=== PATIENT | male | born 1955 | race Two or more races ===

== ENCOUNTER 2020-03-02 07:46 | Inpatient (IN) | payer SELFPAY ==
[~2020-03-02] VITALS: Ht 162.6 cm; Wt 48.1 kg
[2020-03-02] MEDS ORDERED: IV NORMAL SALINE 500 ML BAG IV ONE (08:00)
[2020-03-02] MEDS ORDERED: ONDANSETRON 4 MG/2 ML VIAL IV ONE ×2 (08:00→09:15)
[2020-03-02] MEDS ORDERED: FAMOTIDINE. 20 MG/2 ML VIAL IV ONE ×2 (08:00→08:51)
[2020-03-02] MEDS ORDERED: MAG HYDROX/AL HYDROX/SIMETH 30 ML LIQUID UDC PO ONE (08:00)
--- NOTE | 2020-03-02 08:00 | NUR ---
PT IS IN ROOM #1A. DR VELASQUEZ EVALUATED THE PT.
[2020-03-02 08:30] LABS: BASOPHILS % (AUTO) 0.2 % (0.0-2.0); LYMPHOCYTES # (AUTO) 0.2 K/uL (20.0-40.0); LYMPHOCYTES % (AUTO) 1.9 % (20.5-51.5); MEAN CORPUSCULAR HEMOGLOBIN 22.2 uug (23.8-33.4); RED BLOOD CELL COUNT(AUTO) 2.98 MIL/uL (4.06-5.63)
[2020-03-02 08:32] LABS: EOSINOPHILS % (AUTO) 0.1 % (0.0-7.0); HEMATOCRIT 21.9 % (36.7-47.1); MEAN CORPUSCULAR HGB CONC 30 g/dL (32.5-36.3); MEAN CORPUSCULAR VOLUME 73.5 fL (73.0-96.2); MONOCYTES % (AUTO) 9.5 % (0.0-11.0); NEUTROPHILS # (AUTO) 9.5 K/uL (1.8-8.9); NEUTROPHILS % (AUTO) 88.3 % (38.5-71.5); PLATELET COUNT (AUTO) 503 K/uL (152-348); WHITE BLOOD COUNT (AUTO) 10.7 K/uL (3.6-10.2)
[2020-03-02 08:41] LABS: CREATININE 1.6 mg/dL (0.6-1.3); POTASSIUM 3.4 mmol/L (3.5-5.1)
[2020-03-02] MEDS ORDERED: ONDANSETRON 4 MG/2 ML VIAL ONE (08:49)
[2020-03-02] MEDS ORDERED: MAG HYDROX/AL HYDROX/SIMETH 30 ML LIQUID UDC ONE (08:50)
[2020-03-02 08:55] LABS: BILIRUBIN,DIRECT 0.2 mg/dL (0.0-0.2); BILIRUBIN,TOTAL 0.8 mg/dL (0.2-1.0)
[2020-03-02 08:56] LABS: ETHANOL < 3 MG/DL (0-0)
[2020-03-02 08:57] LABS: HEMOGLOBIN 6.6 g/dL (12.5-16.3)
[2020-03-02] MEDS ORDERED: LIDOCAINE VISCUS 2% 15 ML UDC MM ONE (09:15)
[2020-03-02 10:36] LABS: LIPASE 1227 U/L (73-393)
--- NOTE | 2020-03-02 14:23 | NUR ---
ONE UNIT OF PRBC's WAS INFUSED. PT TOLERATED TO BLOOD TRANSFUSION WITHOUT COMPLICATIONS. ( SEE BLOOD TRANSFUSION FORM) CONTINUE TO MONITOR THE PT.
[2020-03-02] MEDS ORDERED: IV LACTATED RINGERS SOLUTION 1,000 ML BAG IV ONE (15:00)
[2020-03-02] MEDS ORDERED: MORPHINE SULFATE 4 MG/1 ML DISP.SYRIN IV ONE (15:00)
[2020-03-02] MEDS ORDERED: LIDOCAINE VISCUS 2% 15 ML UDC ONE (15:09)
[2020-03-02] MEDS ORDERED: ACETAMINOPHEN 325 MG TABLET PO PRN (18:15)
[2020-03-02] MEDS ORDERED: MAGNESIUM HYDROXIDE 30 ML LIQUID UDC PO PRN (18:15)
[2020-03-02] MEDS ORDERED: Z GUARD REMEDY PASTE 57 GM TUBE TOP PRN (18:15)
--- NOTE | 2020-03-02 18:35 | NUR ---
PT IS NPO ACCORDING TO DR VELASQUEZ.
[2020-03-02] MEDS: ONDANSETRON 4 MG/2 ML VIAL IV PRN (18:48)
--- NOTE | 2020-03-02 19:00 | NUR ---
REPORT GIVEN TO FINANCIAL SYSTEMS MANAGER RN.
--- NOTE | 2020-03-02 19:30 | NUR ---
Received patient in shift report
[2020-03-02 20:15] LABS: LYMPHOCYTES % (MANUAL) 2 % (20-40); MONOCYTES % (MANUAL) 5 % (2-10); NEUTROPHILS % (MANUAL) 93 % (42-75)
--- NOTE | 2020-03-03 03:05 | NUR ---
Patient noted resting iin bed, no signs of acute distress noted
--- NOTE | 2020-03-03 07:10 | NUR ---
Recieved report from Jennifer DALEY. Pt in [facility] noted.
[2020-03-03] MEDS ORDERED: FAMOTIDINE. 20 MG/2 ML VIAL IV ONE (07:32)
[2020-03-03 08:49] LABS: BASOPHILS % (AUTO) 0.4 % (0.0-2.0); EOSINOPHILS % (AUTO) 0.6 % (0.0-7.0); HEMATOCRIT 22.6 % (36.7-47.1); LYMPHOCYTES # (AUTO) 0.4 K/uL (20.0-40.0); MEAN CORPUSCULAR HEMOGLOBIN 23.8 uug (23.8-33.4); MEAN CORPUSCULAR HGB CONC 32 g/dL (32.5-36.3); MEAN CORPUSCULAR VOLUME 75.7 fL (73.0-96.2); MONOCYTES # (AUTO) 0.8 K/uL (2.0-10.0); MONOCYTES % (AUTO) 11.6 % (0.0-11.0); NEUTROPHILS # (AUTO) 5.6 K/uL (1.8-8.9); NEUTROPHILS % (AUTO) 81.4 % (38.5-71.5); PLATELET COUNT (AUTO) 323 K/uL (152-348); RED BLOOD CELL COUNT(AUTO) 2.99 MIL/uL (4.06-5.63); WHITE BLOOD COUNT (AUTO) 6.9 K/uL (3.6-10.2)
[2020-03-03 09:00] LABS: HEMOGLOBIN 7.1 g/dL (12.5-16.3)
[2020-03-03] MEDS ORDERED: FAMOTIDINE. 20 MG/2 ML VIAL IV SCH ×2 (09:00→17:00)
--- NOTE | 2020-03-03 09:32 | NUR ---
Carolyn Wilder aware of hgb of 7.1, and that it is trending up from yesterday.
--- NOTE | 2020-03-03 11:24 | NUR ---
SBAR report given to Emerald in Telemetry.
--- NOTE | 2020-03-03 11:39 | NUR ---
pt tranferred to tele unit via gurpa with all belongings by Billie CARSON
[2020-03-03 11:47] LABS: MAGNESIUM 1.5 mg/dL (1.8-2.4); PHOSPHOROUS 1.5 mg/dL (2.5-4.9)
[2020-03-03 11:59] VITALS: BP 151/75
--- NOTE | 2020-03-03 12:00 | NUR ---
Received report from Jordana in ER at 1124. Pt arrived to unit at 1140 via gurney. Belongings accounted for, belongings list signed by pt. Pt A&Ox4, Marshallese speaking, able to make needs known. Respirations even, O2 sat 100% RA. No s/s of acute distress, no SOB, no complaints of pain or discomfort at this time. Belongings and call light within reach. Educated pt transmission system operator light usage, pt verbalized understanding. Safety precautions in place. SENIOR PROJECT ENGINEER Carolyn Wilder at bedside, aware of lab values. Pt started on Cl. Liq diet. Will continue to monitor.
[2020-03-03] MEDS ORDERED: THIAMINE HCL INJ 100 MG in IV DEXTROSE 5% 50 ML IV SCH (14:00)
[2020-03-03] MEDS: IV NS 1000 ML 1,000 ML IV PRN (14:28)
[2020-03-03] MEDS: FOLIC ACID 1 MG TABLET PO SCH (14:34)
[2020-03-03] MEDS: THIAMINE HCL 100 MG TABLET PO SCH (14:34)
[2020-03-03] MEDS ORDERED: NEUTRA PHOS PACKET PO ONE (15:45)
[2020-03-03 16:01] VITALS: BP 148/72
[2020-03-03] MEDS ORDERED: POTASSIUM CHLORIDE 50 ML IV SCH (18:00)
[2020-03-03] MEDS ORDERED: MAGNESIUM SULFATE/D5W 100 ML IV SCH ×2 (18:00→20:00)
[2020-03-03] MEDS: HYDROCODONE/APAP 5-325MG TABLET PO PRN (18:21)
[2020-03-03 19:40] VITALS: BP 153/61
--- NOTE | 2020-03-03 19:45 | NUR ---
EOSS: Pt. in bed, A&O x4. No s/s of acute distress, no SOB. Respirations unlabored, O2 sat 99% RA. All due medications given per orders. All care administered as ordered. All needs met throughout shift. Pt denies pain or discomfort at this time. No BM during shift, will endorse occult blood stool to mine shifter. Safety measures and fall precautions maintained throughout shift. Call light within reach. Will endorse care to mine shifter.
[2020-03-03] MEDS ORDERED: POTASSIUM CHLORIDE 100 ML ONE (21:35)
[2020-03-03] MEDS: POTASSIUM CHLORIDE 50 ML IV SCH ×2 (21:45→22:44)
[2020-03-04 00:12] VITALS: BP 151/80
[2020-03-04 04:40] VITALS: BP 132/68
--- NOTE | 2020-03-04 06:39 | NUR ---
Patient awake and able to make needs known. Noted with IV on right AC pulled out.Started new Iv access on right forearm 22 g with good blood return .Kcl 10 meq 2 bags given during the shift.No a/r noted .Tolerated well. Patient vomited x1 this morning.Zofran IVP given.Will endorsed to oncoming shift.
[2020-03-04] MEDS: IV NS 1000 ML 1,000 ML IV PRN ×2 (06:56→17:26)
--- NOTE | 2020-03-04 07:30 | NUR ---
Received pt in bed, awake, A&Ox4. [place] speaking, able to verbalize needs. No s/s of acute distress. No SOB, respirations even. Pt denies pain or discomfort at this time. Call light and belongings in reach. Safety precautions in place. Will continue to monitor.
[2020-03-04 08:03] LABS: BILIRUBIN,TOTAL 0.4 mg/dL (0.2-1.0); CREATININE 0.9 mg/dL (0.6-1.3); PHOSPHOROUS 1.5 mg/dL (2.5-4.9); TOTAL PROTEIN, SERUM 6.1 g/dL (6.4-8.2)
[2020-03-04 08:27] LABS: BASOPHILS % (AUTO) 0.5 % (0.0-2.0); EOSINOPHILS % (AUTO) 0.7 % (0.0-7.0); HEMATOCRIT 23.8 % (36.7-47.1); HEMOGLOBIN 7.5 g/dL (12.5-16.3); LYMPHOCYTES # (AUTO) 0.8 K/uL (20.0-40.0); LYMPHOCYTES % (AUTO) 13.6 % (20.5-51.5); MEAN CORPUSCULAR HEMOGLOBIN 23.7 uug (23.8-33.4); MEAN CORPUSCULAR HGB CONC 32 g/dL (32.5-36.3); MEAN CORPUSCULAR VOLUME 75.4 fL (73.0-96.2); MONOCYTES # (AUTO) 0.5 K/uL (2.0-10.0); NEUTROPHILS # (AUTO) 4.5 K/uL (1.8-8.9); NEUTROPHILS % (AUTO) 76.2 % (38.5-71.5); PLATELET COUNT (AUTO) 338 K/uL (152-348); RED BLOOD CELL COUNT(AUTO) 3.16 MIL/uL (4.06-5.63); WHITE BLOOD COUNT (AUTO) 5.9 K/uL (3.6-10.2)
[2020-03-04 08:41] VITALS: BP 137/74
[2020-03-04 08:50] LABS: POTASSIUM 2.7 mmol/L (3.5-5.1)
[2020-03-04] MEDS ORDERED: POTASSIUM CHLORIDE 20 MEQ POWDER PACKET PO SCH (09:00)
[2020-03-04] MEDS: THIAMINE HCL 100 MG TABLET PO SCH (09:53)
[2020-03-04] MEDS: FOLIC ACID 1 MG TABLET PO SCH (09:53)
[2020-03-04] MEDS: FAMOTIDINE 20 MG TABLET PO SCH ×2 (09:55→20:53)
--- NOTE | 2020-03-04 10:00 | NUR ---
Pt with emesis x1. Emesis clear, no evidence of bleeding noted. Will continue to monitor.
[2020-03-04] MEDS ORDERED: POTASSIUM CHLORIDE 50 ML IV SCH (11:00)
--- NOTE | 2020-03-04 11:19 | NUR ---
Training And Development Professional consultation: 10:30am: This SW met with this patient today. Reason for consultation is homelessness. Patient is a 64 year old male, alert, oriented x 4, able to communicate. Patient was receptive to meeting with this SW. Patient reports coming to the hospital on 03/02 due to abdominal pain. Patient reports being homeless, and living in a tent near [facility]. Patient states that he moved to [place] from [place] about 1 year ago, following his divorce, and that he has been homeless since moving to [place]. Patient currently does not have health insurance, and this SW made a referral to patient services service representative Rachel, , who stated that she will be following up with the patient today. Patient is independent with his ADL's. Patient reports receiving about $500 in social security benefits. Patient reports no family or friends to contact, and states that he is responsible for himself. Patient reports that he started drinking when he moved to [place], drinking vodka almost on a daily basis. Patient reports the last time he had a drink was last week, and stated that he longer wants to drink. Patient stated he does not smoke cigarettes, nor uses any other drugs. Patient reports no hx of mental illness. No SI or HI. Patient was cooperative throughout this interview, maintained appropriate eye contact with this SW. Affect and behavior were WNL. Speech was clear. Thought process and thought content were appropriate. Discharge plans discussed, and patient stated that he would return back to his tent. SW offered patient homeless community resources, and patient was receptive to these resources. provided the homeless resource packet to the patient, which includes the following resources: the [phone] [facility] Winter Fdc Program that provides locations of the winter shelters: [facility], [place], ; [facility], [address] [place], [address], ; [facility], [facility], [address], [address], ; [facility] [place], Tanesha Coates, [address] [facility], [address], ; [facility] [place], Deanna [place], [address], [place], [address]; [phone]; [employer], [employer], [address] [place], [address], ; [facility] [place], [address] [place], [address], [phone]; [facility], [address] [place], [address], ; [facility] [employer], [address], [address], ; [facility] [place], [employer], [address] [place] [address], ; [facility] [employer] [place], [facility], [address], [address], ; [facility] [place], [facility], [address], [address], ; the [facility] homeless directory which provides a list of places that individuals can go to throughout the week for hot meals, sack lunches, food pantries, and showers; a list of mental health clinics: [facility] [address] [place] [address], ; [facility] [address] [place] [address], ; [facility] [address] [place] [address], ; a list of medical clinics: [facility] [address] [facility] [address], [place]. [place], ; [facility] [address] [facility], [address] [place] [address]; [facility] [address] [facility] [address], ; and a list of substance abuse programs: [facility] Substance Abuse Self-helpline ; [facility] ; [facility] ; [facility] ; [facility] ; [facility] [phone]; [facility] [phone]. SW also provided patient with information on locations of pharmacies. Patient signed the homeless patient waiver form, which this SW filed in patient's chart. No further SS interventions needed at this time, however SW will remain available to the patient, as needed.
[2020-03-04 12:23] VITALS: BP 125/66
[2020-03-04 12:32] LABS: *OCCULT BLOOD STOOL POSITIVE (NEGATIVE)
--- NOTE | 2020-03-04 13:17 | NUR ---
Pt refused IV KCL. DNP Bryant Carrion at bedside at aware of refusal. New order for PO Klor-con. Will continue to monitor.
[2020-03-04] MEDS: ENSURE CLEAR 240 ML LIQUID (MIX BERRY) PO SCH ×2 (13:25→17:16)
[2020-03-04] MEDS ORDERED: POTASSIUM CHLORIDE 20 MEQ POWDER PACKET PO ONE (13:30)
[2020-03-04 16:16] VITALS: BP 125/66
[2020-03-04] MEDS ORDERED: SODIUM PHOSPHATE MM 15 MMOL in IV NORMAL SALINE 250 ML IV ONE (16:30)
[2020-03-04] MEDS: POTASSIUM CHLORIDE 20 MEQ POWDER PACKET PO ONE ×2 (17:16→17:38)
--- NOTE | 2020-03-04 17:39 | NUR ---
Pt refused 1800 Klor-Con. C/O burning pain in stomach. Will continue to monitor.
--- NOTE | 2020-03-04 18:45 | NUR ---
Pt. pulled out IV at 1845 and refused IV medication and fluids. Pt stated: "I don't want it". IV catheter intact, no shearing noted. Site cleaned, pressure dressing applied. No s/s of active bleeding noted. Will endorse to retail shift manager.
--- NOTE | 2020-03-04 19:30 | NUR ---
Received patient lying in bed AAOx4. Mainly Burundian speaking. Calm and cooperative at this time. In no acute distress. Denies any pain. Complained of stomach pain. Will notify MD. ANDREWS on tele at 77/min. Will restart IV. Patient pulled out IV per day shift nurse report. Safety measure initiated and call dickey within reached.
--- NOTE | 2020-03-04 19:30 | NUR ---
EOSS: Pt in bed, awake, A&Ox4. No SOB. Pt continues to refuse treatments. Pt c/o of stomach pain. No further emesis noted. No s/s of active bleeding noted. Safety measures and fall precautions maintained throughout shift. Call light within reach, pt verbalized understanding of usage. Will endorse care to machinist 2nd shift.
--- NOTE | 2020-03-04 19:31 | NUR ---
Started new IV site/line on left AC #20G. IVF continued.
--- NOTE | 2020-03-04 20:10 | NUR ---
Patient complaining of gastric pain. Informed OVEN WORKER Afshan and ordered Maalox 30ml q6hrs PRN. Order read back and verified. Will carry out order.
[2020-03-04] MEDS: MAG HYDROX/AL HYDROX/SIMETH 30 ML LIQUID UDC PO PRN (20:52)
[2020-03-05 00:03] VITALS: BP 127/64
[2020-03-05 04:09] VITALS: BP 132/54
--- NOTE | 2020-03-05 06:26 | NUR ---
No significant event throughout the shift. Slept well last night. Continue on IV fluids. Maalox given per PRN order x1 and effective. No further complain of stomach pain. IVF infusing. NSR on tele at 67/min. Needs attended to and met. Safety measure maintained and call dickey within reached.
--- NOTE | 2020-03-05 07:30 | NUR ---
Received pt in bed, awake, A&Ox4. Citizen Of [place] speaking, able to verbalize needs. No s/s of acute distress. No SOB, respirations even. Pt denies pain or discomfort at this time. IVF infusing. Call light and belongings in reach. Safety precautions in place. Will continue to monitor.
[2020-03-05 07:38] LABS: CREATININE 0.8 mg/dL (0.6-1.3)
[2020-03-05 08:11] LABS: EOSINOPHILS # (AUTO) 0.1 K/uL (0.0-0.7); MONOCYTES # (AUTO) 0.5 K/uL (2.0-10.0)
[2020-03-05 08:13] LABS: BASOPHILS % (AUTO) 0.8 % (0.0-2.0); EOSINOPHILS % (AUTO) 1.3 % (0.0-7.0); HEMATOCRIT 23.8 % (36.7-47.1); LYMPHOCYTES # (AUTO) 0.6 K/uL (20.0-40.0); LYMPHOCYTES % (AUTO) 10.6 % (20.5-51.5); MEAN CORPUSCULAR HEMOGLOBIN 23.4 uug (23.8-33.4); MEAN CORPUSCULAR HGB CONC 31 g/dL (32.5-36.3); MONOCYTES % (AUTO) 9.5 % (0.0-11.0); NEUTROPHILS # (AUTO) 4.4 K/uL (1.8-8.9); NEUTROPHILS % (AUTO) 77.8 % (38.5-71.5); PLATELET COUNT (AUTO) 346 K/uL (152-348); RED BLOOD CELL COUNT(AUTO) 3.13 MIL/uL (4.06-5.63); WHITE BLOOD COUNT (AUTO) 5.7 K/uL (3.6-10.2)
[2020-03-05 08:33] LABS: HEMOGLOBIN 7.3 g/dL (12.5-16.3)
[2020-03-05] MEDS: FAMOTIDINE 20 MG TABLET PO SCH ×2 (08:39→20:13)
[2020-03-05] MEDS: FOLIC ACID 1 MG TABLET PO SCH (08:39)
[2020-03-05] MEDS: THIAMINE HCL 100 MG TABLET PO SCH (08:40)
[2020-03-05] MEDS: ENSURE CLEAR 240 ML LIQUID (MIX BERRY) PO SCH ×3 (08:47→17:00)
[2020-03-05] MEDS: POTASSIUM CHLORIDE 20 MEQ TAB.PRT.SR PO SCH ×2 (10:17→11:43)
[2020-03-05] MEDS: IV NS 1000 ML 1,000 ML IV PRN (11:23)
[2020-03-05 11:44] VITALS: BP 110/55
--- NOTE | 2020-03-05 13:02 | NUR ---
1230 patient eating not ready needs to be NPO at least 4hrs. Cat Scan to be done @ 1700 RN notify no consent sign RN will call when Patient ready
[2020-03-05] MEDS ORDERED: POTASSIUM CHLORIDE 20 MEQ POWDER PACKET PO ONE ×3 (15:30→20:00)
[2020-03-05 16:21] VITALS: BP_SYST 103; BP_SYST 117; BP_SYST 177; BP_DIAS 64; BP_DIAS 66
[2020-03-05] MEDS ORDERED: IOHEXOL 300MG/ML 100 ML INFUS..BTL ONE (17:17)
[2020-03-05] MEDS ORDERED: SWABABLE VALVE TRANSFER SET EA MC ONE (17:17)
[2020-03-05] MEDS ORDERED: IV NORMAL SALINE 250 ML IV ONE (17:17)
[2020-03-05] MEDS: ONDANSETRON 4 MG/2 ML VIAL IV PRN (17:36)
--- NOTE | 2020-03-05 17:37 | NUR ---
Pt with emesis x1. No evidence of bleeding noted. Pt c/o of nausea. PRN Zofran administered per order. Continue to monitor.
--- NOTE | 2020-03-05 18:00 | NUR ---
Pt off unit for with radiology for CT. Transferred via bed with Ignacio.
--- NOTE | 2020-03-05 18:25 | NUR ---
Pt back on unit after CT. Transferred via bed by Ignacio. Pt stable. Denies nausea, denies further emesis. Continue to monitor.
--- NOTE | 2020-03-05 19:30 | NUR ---
EOSS: Pt in bed, awake. No s/s of acute distress. Pt denies pain, discomfort, nausea. No further emesis. No s/s of active bleeding noted. IV patent and intact, fluids infusing. Safety measures maintained throughout shift. Call light within reach, usage reinforced. Will endorse care to shift manager.
--- NOTE | 2020-03-05 19:30 | NUR ---
AAOx4. In no acute distress. Denies any pain or SOB. Denies any N/V at this time. NSR on tele at 83/min. IV site on left FA intact and patent. IVF infusing. Safety measure initiated and call dickey within reached
[2020-03-05 19:59] VITALS: BP 115/54
[2020-03-05] MEDS: MAG HYDROX/AL HYDROX/SIMETH 30 ML LIQUID UDC PO PRN (20:16)
[2020-03-06] VITALS: BP 122/58
[2020-03-06] MEDS: IV NS 1000 ML 1,000 ML IV PRN ×2 (02:21→12:26)
[2020-03-06 04:12] VITALS: BP 118/57
--- NOTE | 2020-03-06 06:15 | NUR ---
Slept well last night. Vomited small amount last night and felt better after providing Maalox 30ml PO. IVF continue to infuse. NSR on tele at 94/min. Needs attended to and met. Safety measure maintained and call dickey within reached.
[2020-03-06 08:01] VITALS: BP 116/71
[2020-03-06] MEDS: FOLIC ACID 1 MG TABLET PO SCH (08:07)
[2020-03-06] MEDS: FAMOTIDINE 20 MG TABLET PO SCH ×2 (08:07→21:39)
[2020-03-06] MEDS: ENSURE CLEAR 240 ML LIQUID (MIX BERRY) PO SCH ×3 (08:07→16:45)
[2020-03-06] MEDS: THIAMINE HCL 100 MG TABLET PO SCH (08:07)
[2020-03-06] MEDS: ONDANSETRON 4 MG/2 ML VIAL IV PRN ×2 (10:30→21:39)
[2020-03-06 12:02] VITALS: BP 124/61
[2020-03-06] MEDS: CEFTRIAXONE 1 G in IV DEXTROSE 5% 50 ML IV SCH (15:38)
[2020-03-06 15:58] VITALS: BP 131/62
[2020-03-06 18:00] LABS: *BILIRUBIN,URIN NEGATIVE (NEGATIVE); *BLOOD, URINE NEGATIVE (NEGATIVE); *CLARITY,URINE CLEAR (CLEAR); *COLOR,URINE YELLOW (YELLOW); *KETONES,URINE NEGATIVE (NEGATIVE); *UROBILINOGEN,URINE 0.2 E.U./dl (NORMAL); LEUKOCYTE ESTERASE ,URINE NEGATIVE (NEGATIVE); NITRITE, URINE NEGATIVE (NEGATIVE); PH,URINE 7.5 (5.0-8.0); UGLUCOSE NEGATIVE (NEGATIVE)
[2020-03-06 20:00] VITALS: BP 131/55
[2020-03-07] VITALS (8 sets, daily range): BP systolic 109–137; BP diastolic 55–77
[2020-03-07] MEDS: IV NS 1000 ML 1,000 ML IV PRN (02:37)
--- NOTE | 2020-03-07 06:23 | NUR ---
PT SLEPT INTERMITTENTLY. PRESCRIBED MEDICATION GIVEN AND PT TOLERATED IT WELL. PT IN NO ACUTE DISTRESS. PT GIVEN ZOFRAN AT 2139H FOR VOMITTING 200ML LIQUID. AFTER AN HOUR PT STATED HE IMPROVE AND NO VOMITTING OCCUR. PT IN NO ACUTE DISTRESS. SAFETY AND COMFORT PROVIDED. ALL NEEDS ARE MET. WILL ENDORSE TO INCOMING NURSE FOR CONTINUITY OF CARE.
[2020-03-07 06:57] LABS: BASOPHILS # (AUTO) 0.1 K/uL (0.0-8.0); BASOPHILS % (AUTO) 0.8 % (0.0-2.0); EOSINOPHILS # (AUTO) 0.2 K/uL (0.0-0.7); EOSINOPHILS % (AUTO) 2.6 % (0.0-7.0); HEMATOCRIT 21.6 % (36.7-47.1); LYMPHOCYTES # (AUTO) 0.9 K/uL (20.0-40.0); LYMPHOCYTES % (AUTO) 13.5 % (20.5-51.5); MEAN CORPUSCULAR HEMOGLOBIN 23.6 uug (23.8-33.4); MEAN CORPUSCULAR HGB CONC 31 g/dL (32.5-36.3); MEAN CORPUSCULAR VOLUME 76.2 fL (73.0-96.2); MONOCYTES # (AUTO) 1.2 K/uL (2.0-10.0); MONOCYTES % (AUTO) 17.9 % (0.0-11.0); NEUTROPHILS # (AUTO) 4.2 K/uL (1.8-8.9); NEUTROPHILS % (AUTO) 65.2 % (38.5-71.5); PLATELET COUNT (AUTO) 322 K/uL (152-348); RED BLOOD CELL COUNT(AUTO) 2.83 MIL/uL (4.06-5.63); WHITE BLOOD COUNT (AUTO) 6.5 K/uL (3.6-10.2)
[2020-03-07 06:58] LABS: HEMOGLOBIN 6.7 g/dL (12.5-16.3)
[2020-03-07 07:07] LABS: CREATININE 0.9 mg/dL (0.6-1.3); POTASSIUM 2.9 mmol/L (3.5-5.1)
[2020-03-07 07:11] LABS: EOSINOPHILS % (MANUAL) 4 % (0-8); LYMPHOCYTES % (MANUAL) 13 % (20-40); MONOCYTES % (MANUAL) 18 % (2-10); NEUTROPHILS % (MANUAL) 65 % (42-75)
[2020-03-07 07:13] LABS: EOSINOPHILS % (MANUAL) 4 % (0-8); LYMPHOCYTES % (MANUAL) 13 % (20-40); MONOCYTES % (MANUAL) 18 % (2-10); NEUTROPHILS % (MANUAL) 65 % (42-75)
--- NOTE | 2020-03-07 08:00 | NUR ---
Received PT in bed, awake AO X 4. No acute distress or SOB noted. PT is cooperative and pleasant. PT makes needs known to staff. No complain of pain noted at the time. PT in bed with safety measures, call light within reach, bed low and lock. Will continue to monitor.
[2020-03-07] MEDS: FOLIC ACID 1 MG TABLET PO SCH (08:34)
[2020-03-07] MEDS: ENSURE CLEAR 240 ML LIQUID (MIX BERRY) PO SCH (08:34)
[2020-03-07] MEDS: THIAMINE HCL 100 MG TABLET PO SCH (08:34)
[2020-03-07] MEDS: FAMOTIDINE 20 MG TABLET PO SCH ×2 (08:34→20:36)
[2020-03-07] MEDS ORDERED: POTASSIUM CHLORIDE 20 MEQ POWDER PACKET PO ONE (10:30)
[2020-03-07] MEDS: ONDANSETRON 4 MG/2 ML VIAL IV PRN ×2 (10:57→20:45)
[2020-03-07] MEDS: GLUCERNA SHAKE VANILLA 237 ML CAN PO SCH ×2 (14:01→16:16)
[2020-03-07] MEDS ORDERED: POTASSIUM CHLORIDE 20 MEQ POWDER PACKET GT ONE (14:30)
[2020-03-07] MEDS: CEFTRIAXONE 1 G in IV DEXTROSE 5% 50 ML IV SCH (16:16)
--- NOTE | 2020-03-07 18:55 | NUR ---
Received PT in bed, awake AO X 4. No acute distress or SOB noted. PT is cooperative and pleasant. PT makes needs known to staff. No complain of pain noted at the time. PT in bed with safety measures, call light within reach, bed low and lock. Will endorse to mine shifter nurse
[2020-03-08] VITALS (13 sets, daily range): BP systolic 112–142; BP diastolic 47–72
--- NOTE | 2020-03-08 03:05 | NUR ---
Pt received 1 unit of PRBC, no adverse effect noted. Vitals stable. Will continue with the plan of care.
[2020-03-08] MEDS: IV NS 1000 ML 1,000 ML IV PRN ×2 (05:10→23:26)
--- NOTE | 2020-03-08 06:46 | NUR ---
Pt remained stable throughout the shift. Denies any acute distress or pain at this time. V/S stable on room air. NSR on tele monitor. Comfort care and needs attended. Safety measures in place. Bed low and locked in position. Call light within reach. Will endorse to the oncoming nurse accordingly.
[2020-03-08 07:38] LABS: CREATININE 0.9 mg/dL (0.6-1.3); MAGNESIUM 1.4 mg/dL (1.8-2.4); POTASSIUM 3.9 mmol/L (3.5-5.1)
[2020-03-08 07:47] LABS: BASOPHILS # (AUTO) 0.1 K/uL (0.0-8.0); BASOPHILS % (AUTO) 2.2 % (0.0-2.0); EOSINOPHILS # (AUTO) 0.1 K/uL (0.0-0.7); EOSINOPHILS % (AUTO) 2.2 % (0.0-7.0); HEMATOCRIT 25.1 % (36.7-47.1); LYMPHOCYTES # (AUTO) 1.2 K/uL (20.0-40.0); LYMPHOCYTES % (AUTO) 20.1 % (20.5-51.5); MEAN CORPUSCULAR HEMOGLOBIN 24.7 uug (23.8-33.4); MEAN CORPUSCULAR HGB CONC 32 g/dL (32.5-36.3); MONOCYTES # (AUTO) 1.2 K/uL (2.0-10.0); MONOCYTES % (AUTO) 20.5 % (0.0-11.0); NEUTROPHILS # (AUTO) 3.3 K/uL (1.8-8.9); PLATELET COUNT (AUTO) 323 K/uL (152-348); RED BLOOD CELL COUNT(AUTO) 3.26 MIL/uL (4.06-5.63)
[2020-03-08] MEDS: FOLIC ACID 1 MG TABLET PO SCH (09:08)
[2020-03-08] MEDS: FAMOTIDINE 20 MG TABLET PO SCH ×2 (09:08→21:23)
[2020-03-08] MEDS: THIAMINE HCL 100 MG TABLET PO SCH (09:11)
[2020-03-08] MEDS: GLUCERNA SHAKE VANILLA 237 ML CAN PO SCH ×3 (09:11→17:00)
[2020-03-08] MEDS: MAGNESIUM SULFATE/D5W 100 ML IV SCH ×4 (10:32→14:53)
[2020-03-08] MEDS ORDERED: PROPOFOL 200 MG/20 ML BOTTLE IV ONE (13:28)
[2020-03-08] MEDS: CEFTRIAXONE 1 G in IV DEXTROSE 5% 50 ML IV SCH (14:54)
[2020-03-08 18:40] LABS: BAND % (MANUAL) 2 % (0-10); EOSINOPHILS % (MANUAL) 4 % (0-8); LYMPHOCYTES % (MANUAL) 21 % (20-40); MONOCYTES % (MANUAL) 6 % (2-10); NEUTROPHILS % (MANUAL) 67 % (42-75)
[2020-03-09 04:00] VITALS: BP 117/46
--- NOTE | 2020-03-09 06:15 | NUR ---
Pt stable throughout the shift. Denies any acute distress or pain at this time. Comfort care and needs attended. Safety measures in place. Will endorse to oncoming nurse accordingly.
[2020-03-09 07:13] LABS: BASOPHILS # (AUTO) 0.1 K/uL (0.0-8.0); BASOPHILS % (AUTO) 1.3 % (0.0-2.0); EOSINOPHILS # (AUTO) 0.1 K/uL (0.0-0.7); EOSINOPHILS % (AUTO) 0.7 % (0.0-7.0); HEMATOCRIT 25.4 % (36.7-47.1); HEMOGLOBIN 8.2 g/dL (12.5-16.3); LYMPHOCYTES # (AUTO) 1.2 K/uL (20.0-40.0); LYMPHOCYTES % (AUTO) 13.4 % (20.5-51.5); MEAN CORPUSCULAR HEMOGLOBIN 24.5 uug (23.8-33.4); MEAN CORPUSCULAR HGB CONC 32 g/dL (32.5-36.3); MEAN CORPUSCULAR VOLUME 75.7 fL (73.0-96.2); MONOCYTES # (AUTO) 1.6 K/uL (2.0-10.0); MONOCYTES % (AUTO) 18.1 % (0.0-11.0); NEUTROPHILS # (AUTO) 5.7 K/uL (1.8-8.9); NEUTROPHILS % (AUTO) 66.5 % (38.5-71.5); PLATELET COUNT (AUTO) 356 K/uL (152-348); RED BLOOD CELL COUNT(AUTO) 3.35 MIL/uL (4.06-5.63); WHITE BLOOD COUNT (AUTO) 8.6 K/uL (3.6-10.2)
[2020-03-09 07:16] LABS: CREATININE 0.9 mg/dL (0.6-1.3); POTASSIUM 3.9 mmol/L (3.5-5.1)
[2020-03-09] MEDS: HYDROCODONE/APAP 5-325MG TABLET PO PRN (08:46)
[2020-03-09] MEDS: FAMOTIDINE 20 MG TABLET PO SCH (08:46)
[2020-03-09] MEDS: FOLIC ACID 1 MG TABLET PO SCH (08:46)
[2020-03-09] MEDS: THIAMINE HCL 100 MG TABLET PO SCH (08:46)
[2020-03-09] MEDS: GLUCERNA SHAKE VANILLA 237 ML CAN PO SCH ×3 (08:47→16:21)
[2020-03-09] MEDS: IV NS 1000 ML 1,000 ML IV PRN ×2 (08:54→21:40)
[2020-03-09] MEDS ORDERED: LORAZEPAM 1 MG TABLET PO PRN (11:45)
[2020-03-09 11:48] VITALS: BP 100/50
[2020-03-09] MEDS: FERROUS SULFATE 325 MG TABEC PO SCH ×2 (12:41→21:31)
[2020-03-09] MEDS: PANTOPRAZOLE SODIUM 40 MG TABLET.DR PO SCH ×2 (12:41→21:31)
[2020-03-09] MEDS: ENSURE WITH FIBER 237 ML LIQUID (CHOCOLATE) PO SCH ×2 (12:41→16:20)
[2020-03-09 13:21] LABS: BAND % (MANUAL) 17 % (0-10); BASOPHILS % (MANUAL) 2 % (0-2); LYMPHOCYTES % (MANUAL) 17 % (20-40); MONOCYTES % (MANUAL) 14 % (2-10); NEUTROPHILS % (MANUAL) 50 % (42-75)
[2020-03-09] MEDS: CEFTRIAXONE 1 G in IV DEXTROSE 5% 50 ML IV SCH (14:30)
[2020-03-09 16:17] VITALS: BP 134/42
[2020-03-09 20:00] VITALS: BP 122/93
--- NOTE | 2020-03-09 21:32 | NUR ---
dr. antione daniels placed orders for patient to have regular diet. d/c planning for tomorrow.
[2020-03-10] VITALS (8 sets, daily range): BP systolic 113–139; BP diastolic 47–66
--- NOTE | 2020-03-10 07:05 | NUR ---
patient resting comfortably throughout the night. aaox3. no s/s of acute distress noted. v/s stable at this time. will continue to monitor and assess.
[2020-03-10 07:17] LABS: BASOPHILS # (AUTO) 0.1 K/uL (0.0-8.0); EOSINOPHILS # (AUTO) 0.1 K/uL (0.0-0.7); EOSINOPHILS % (AUTO) 1.2 % (0.0-7.0); LYMPHOCYTES # (AUTO) 0.9 K/uL (20.0-40.0); WHITE BLOOD COUNT (AUTO) 5.7 K/uL (3.6-10.2)
[2020-03-10 07:20] LABS: BASOPHILS % (AUTO) 1.7 % (0.0-2.0); HEMATOCRIT 22.7 % (36.7-47.1); LYMPHOCYTES % (AUTO) 16.1 % (20.5-51.5); MEAN CORPUSCULAR HEMOGLOBIN 24.9 uug (23.8-33.4); MEAN CORPUSCULAR HGB CONC 32 g/dL (32.5-36.3); MEAN CORPUSCULAR VOLUME 77.2 fL (73.0-96.2); MONOCYTES # (AUTO) 1.1 K/uL (2.0-10.0); MONOCYTES % (AUTO) 19.4 % (0.0-11.0); NEUTROPHILS # (AUTO) 3.5 K/uL (1.8-8.9); NEUTROPHILS % (AUTO) 61.6 % (38.5-71.5); PLATELET COUNT (AUTO) 335 K/uL (152-348); RED BLOOD CELL COUNT(AUTO) 2.94 MIL/uL (4.06-5.63)
[2020-03-10 07:36] LABS: HEMOGLOBIN 7.3 g/dL (12.5-16.3)
[2020-03-10] MEDS: FERROUS SULFATE 325 MG TABEC PO SCH (08:03)
[2020-03-10] MEDS: PANTOPRAZOLE SODIUM 40 MG TABLET.DR PO SCH (08:03)
[2020-03-10] MEDS: THIAMINE HCL 100 MG TABLET PO SCH (08:03)
[2020-03-10] MEDS: FOLIC ACID 1 MG TABLET PO SCH (08:03)
[2020-03-10] MEDS: GLUCERNA SHAKE VANILLA 237 ML CAN PO SCH ×3 (08:08→17:19)
[2020-03-10] MEDS: ENSURE WITH FIBER 237 ML LIQUID (CHOCOLATE) PO SCH ×3 (08:08→17:19)
--- NOTE | 2020-03-10 13:50 | NUR ---
blood transfusion of PRBC started, will monitor closely for any reactions, pt been instructed of s/s of transfusioon reactions- verbalized understanding,
[2020-03-10] MEDS: CEFTRIAXONE 1 G in IV DEXTROSE 5% 50 ML IV SCH (15:00)
--- NOTE | 2020-03-10 15:30 | NUR ---
blood transfusion infusing without any problem, vss, Rocephin unable to give due to blood transfusion
--- NOTE | 2020-03-10 17:17 | NUR ---
blood transfusion completed, no reactions noted
--- NOTE | 2020-03-10 17:57 | NUR ---
discharge instructions given- verbalized understanding, saline lock removed and id bracelet removed, pt in stable condition, states will eat dinner first prior to discharge
[2020-03-10 18:24] LABS: BAND % (MANUAL) 1 % (0-10); BASOPHILS % (MANUAL) 1 % (0-2); EOSINOPHILS % (MANUAL) 1 % (0-8); LYMPHOCYTES % (MANUAL) 16 % (20-40); MONOCYTES % (MANUAL) 20 % (2-10); NEUTROPHILS % (MANUAL) 61 % (42-75)
--- NOTE | 2020-03-10 18:56 | NUR ---
escorted to the lobby in stable condition with all belongings., pt to take bus
== END 2020-03-10 18:56 | disposition home or self-care (01) | DRG 368 ==
LOC: ER 07:46 → TRANSITION 18:12 → TELE 03-03 11:26 → MED 03-08 10:15
PROVIDERS: ADMIT Nurse Practitioner Acute Care; ATTEND Nurse Practitioner Acute Care
PROC: 30233N1 Transfusion of Nonautologous Red Blood Cells into Peripheral Vein, Percutaneous Approach (ICD-10-PCS; principal; 2020-03-02)
PROC: 0D738ZZ Dilation of Lower Esophagus, Via Natural or Artificial Opening Endoscopic (ICD-10-PCS; 2020-03-08)
DX: K21.01 Gastro-esophageal reflux disease with esophagitis, with bleeding (principal); K85.20 Alcohol induced acute pancreatitis without necrosis or infection; E87.1 Hypo-osmolality and hyponatremia; F10.188 Alcohol abuse with other alcohol-induced disorder; K44.9 Diaphragmatic hernia without obstruction or gangrene; D50.0 Iron deficiency anemia secondary to blood loss (chronic); Y90.0 Blood alcohol level of less than 20 mg/100 ml; Z59.0 Homelessness; K22.2 Esophageal obstruction; E86.1 Hypovolemia; E87.6 Hypokalemia; N30.90 Cystitis, unspecified without hematuria; Z20.822 Contact with and (suspected) exposure to COVID-19
CPT/HCPCS: 36415; 70030-TC; 71045; 83690; 83735; 84100; 85018; 85025; 85610; 85730; 86850; 86900; 86901; 86920; 93005; A4217; A4663; G0378; G0480; J0696; J2270; J2405; J3411; J3475; J3480; J3490; J7030; J7040; J7050; J7060; J7120; P9016-BL; P9021; Q9967